=== PATIENT | male | born 1955 | race African-American/Black ===

== ENCOUNTER → 2017-01-20 | Outpatient (CLI) | payer OTHER ==
--- NOTE | 2017-01-22 09:50 | MRI ---
MRI left hip without contrast Indication: Left hip pain Comparison: None Technique: Multiplanar multi sequence MR images of the left hip were obtained without contrast. Findings: The marrow signal is unremarkable, without evidence for acute fracture, stress reaction, or suspicious lesion. There is lower lumbar spondylosis, with moderate to advanced discogenic degenerat vashti disease at L3-4. Of note, there is edema within the lower left paraspinous musculature (for examp le image 31, series 601), suggestive for strain. The SI joints and pubic symphysis are intact. There are mild degenerative changes of the left hip, with moderate diffuse femoroacetabular chondrosi s. There is irregularity and intermediate signal of the anterior superior labrum with an adjacent cys tic focus measuring 5 x 2 mm (image 7, series 801). There is subchondral marrow edema of the adjacent acetabulum, which may be reactive or secondary to chondrosis. The ligamentum teres is grossly intact . No significant joint effusion. There is mild gluteus medius tendinosis. Small amount of fluid adjac ent to the greater trochanter suggests bursitis. The neurovascular structures are grossly unremarkabl e. Impression: 1. Mild hip degenerative disease with probable degenerative tear of the anterior superior labrum. An adjacent subcentimeter cystic focus is likely a small paralabral or subchondral cyst. 2. Mild gluteus medius tendinosis, trochanteric bursitis. 3. Lower lumbar spondylosis. Mild strain of the left paraspinous musculature. Reported By:
== END | disposition home or self-care (01) | DRG 556 ==
LOC: RAD 13:16
PROVIDERS: ATTEND Internal Medicine
DX: M25.552 Pain in left hip (principal); M71.58 Other bursitis, not elsewhere classified, other site; M47.896 Other spondylosis, lumbar region
CPT/HCPCS: 73721